=== PATIENT | male | born 1955 | race Caucasian/White ===

== ENCOUNTER → 2018-07-09 | Outpatient (CLI) | payer MEDICARE ==
[~2018-07-09] MED LIST: KET10 PO; NONE REPORTED; PER PO
[2018-07-09 10:27] LABS: INR 0.97
--- NOTE | 2018-07-09 11:03 | EKG ---
[place]AC[place] [facility] [place] NAME: JESSE GUNN : [id number] MR: [id number] V: [id number] EXAM DATE: ORDERING PHYSICIAN: ZHANNA RICHARDSON TECHNOLOGIST: EYAL Test Reason : PREOP-KNEE Blood Pressure : / mmHG Vent. Rate : 050 BPM Atrial Rate : 050 BPM P-R Int : 160 ms QRS Dur : 086 ms QT Int : 444 ms P-R-T Axes : 061 073 062 degrees QTc Int : 404 ms Sinus bradycardia Otherwise normal ECG No previous ECGs available Confirmed by HAROON GILLIS ([id number]) on 07/10/2018 6:37:52 AM Referred By: DYLAN Confirmed By:HAROON GILLIS
--- NOTE | 2018-07-09 11:13 | RADIOLOGY IMAGING REPORT ---
FACILITY: [facility] PATIENT NAME: Chandan Trujillo : 1955 MR: [id number] V: [id number] EXAM DATE: ORDERING PHYSICIAN: ZHANNA RICHARDSON TECHNOLOGIST: Location: [facility] Patient: Chandan Trujillo : 1955 Visit/Account:[id number] Date of Sevice: 07/09/2018 Exam type: CHEST PA AND LAT History: Preop knee surgery August 03 Comparison: May 17, 2010. Findings: The lungs are free of acute effusions, infiltrates or edema. There is mild chronic central peribronc hial thickening. No evidence of a pneumothorax or pneumomediastinum. The cardiac silhouette is norm al in size. The trachea is in midline. There are mild spondylotic changes of the thoracic spine IMPRESSION: 1. Mild chronic central peribronchial thickening Report Dictated By: Debbie Chapa MD at 07/09/2018 10:56 AM Report E-Signed By: Debbie Chapa MD at 07/09/2018 11:10 AM WSN:[email or web address]
== END ==
LOC: RAD 09:58
PROVIDERS: ATTEND Internal Medicine
DX: Z01.818 Encounter for other preprocedural examination (principal); J98.09 Other diseases of bronchus, not elsewhere classified
CPT/HCPCS: 36415; 71046; 82040; 82247; 82310; 82374; 82435; 82465; 82565; 82947; 83718; 84075; 84132; 84153; 84155; 84295; 84450; 84460; 84478; 84520; 85027; 85610; 85730; 93005